=== PATIENT | male | born 1960 ===

== ENCOUNTER 2017-06-02 14:49 | Emergency (ER) | payer OTHER ==
[2017-06-02 15:08] VITALS: BP 187/96; PULSE 85; RESP 16; TEMP 98; O2SAT 100
--- NOTE | 2017-06-02 16:14 | ED PDOC ---
Upper Extremity Pain/Injury Time Seen by Provider: 06/02/17 15:46 Chief Complaint (Nursing): Upper Extremity Problem/Injury Chief Complaint (Provider): Right arm pain History Per: Patient History/Exam Limitations: no limitations Onset/Duration Of Symptoms: Days (1) Current Symptoms Are (Timing): Still Present Quality: "Pain" Exacerbating Factor(s): Strenuous Use Of Affected Area Additional History Per: Patient Additional Complaint(s): The patient is a 57yo male, presents to the ED for evaluation of right upper extremity pain since yesterday. Patient states he attempted to break a fall and landed on his right upper extremity, and has pain to the arm since then. Patient reports pain and swelling to the area, states he took Motrin yesterday with some relief. He denies any numbness, weakness, tingling to the area and offers no additional medical complaints. Past Medical History Reviewed: Historical Data, Nursing Documentation, Vital Signs Vital Signs: Last Vital Signs Temp 98.0 F 06/02/17 15:04 Pulse 85 06/02/17 15:04 Resp 16 06/02/17 15:04 BP 187/96 H 06/02/17 15:04 Pulse Ox 100 06/02/17 15:04 - Medical History PMH: No Chronic Diseases - Surgical History Surgical History: No Surg Hx - Family History Family History: States: No Known Family Hx - Social History Current smoker - smoking cessation education provided: No Alcohol: None Drugs: Denies - Home Medications Home Medications: Ambulatory Orders Medication Instructions Recorded Naproxen 500 mg PO Q12H PRN #20 ect 06/02/17 - Allergies Allergies/Adverse Reactions: Allergies Allergy/AdvReac Type Severity Reaction Status Date / Time No Known Allergies Allergy Verified 06/02/17 15:04 Review of Systems Musculoskeletal: Positive for: Arm Pain (right forearm) Neurological: Negative for: Weakness, Numbness Physical Exam - Reviewed Nursing Documentation Reviewed: Yes Vital Signs Reviewed: Yes - Physical Exam Appears: Positive for: Non-toxic, No Acute Distress Head Exam: Positive for: ATRAUMATIC, NORMAL INSPECTION, NORMOCEPHALIC Skin: Positive for: Warm Neck: Positive for: Supple Cardiovascular/Chest: Positive for: Regular Rate, Rhythm Respiratory: Negative for: Respiratory Distress Extremity: Positive for: Normal ROM, Swelling (swelling noted to right mid- forearm.). Negative for: Deformity Neurologic/Psych: Positive for: Alert, Oriented. Negative for: Motor/Sensory Deficits - ECG O2 Sat by Pulse Oximetry: 100 (RA) Pulse Ox Interpretation: Normal Medical Decision Making Medical Decision Making: Time: 1600 Impression: Right arm pain s/p fall Plan: -- XR Right upper extremity -- Motrin 600 Reassess Scribe Attestation: Documented by Asya Rivera acting as a scribe for [employer] Provider Attestation: All medical record entries made by the Scribe were at my direction and personally dictated by me. I have reviewed the chart and agree that the record accurately reflects my personal performance of the history, physical exam, medical decision making, and the department course for this patient. I have also personally directed, reviewed, and agree with the discharge instructions and disposition. Disposition - Clinical Impression Clinical Impression: Injury of wrist or hand - Patient ED Disposition Is Patient to be Admitted: No Counseled Patient/Family Regarding: Diagnosis, Need For Followup - Disposition Referrals: [facility] [Outside] Disposition: Routine/Home Disposition Time: 17:50 Condition: GOOD Additional Instructions: Ice, elevation. Prescriptions: Naproxen 500 mg PO Q12H PRN #20 ect PRN Reason: pain Instructions: Wrist Sprain (ED) Forms: [employer] (Congolese) Print Language: KAZAKH
--- NOTE | 2017-06-02 16:49 | RAD ---
PROCEDURE: Right Wrist Radiographs. HISTORY: Right wrist pain radial side. COMPARISON: None. FINDINGS: BONES: Normal. No fracture. JOINTS: Normal. No dislocation. SOFT TISSUES: Normal. OTHER FINDINGS: None. IMPRESSION: Unremarkable right wrist radiographs. No preliminary report provided by emergency department personnel.
--- NOTE | 2017-06-02 16:58 | RAD ---
PROCEDURE: Right Hand Radiographs. HISTORY: right hand pain, FOOSH COMPARISON: None. FINDINGS: BONES: No acute fracture. JOINTS: Normal. No osteoarthritic changes. SOFT TISSUES: Soft tissue swelling identified at the level of the wrist and in particular distal ulna, ulnar styloid region. OTHER FINDINGS: None. IMPRESSION: Soft tissue swelling without acute articular or osseous abnormality. No preliminary report provided by emergency department personnel.
== END 2017-06-02 18:00 | disposition home or self-care (01) ==
LOC: H.ER 14:49
DX: S69.91XA Unspecified injury of right wrist, hand and finger(s), initial encounter (principal); W19.XXXA Unspecified fall, initial encounter; Y92.89 Other specified places as the place of occurrence of the external cause